=== PATIENT | male | born 1950 | race Caucasian/White ===

== ENCOUNTER 2023-03-08 12:12 | Inpatient (IN) | payer OTHER, MEDICARE, BC ==
[~2023-03-08] VITALS: Ht 170.2 cm; Wt 101.2 kg
[2023-03-08] VITALS (8 sets, daily range): BP systolic 106; BP diastolic 61; PULSE 79–91; RESP 16–30; TEMP 98; O2SAT 84–99
[2023-03-08] MEDS ORDERED: FUROSEMIDE 40 MG/4 ML VIAL IV ONE ×2 (13:15)
[2023-03-08 14:32] LABS: Alanine Aminotransferase 36 U/L (7-40); Albumin 2.5 g/dL (3.2-4.8); Alkaline Phosphatase 167 U/L (46-116); Anion Gap 7 (5-15); Aspartate Aminotransferase 100 U/L (13-40); BUN/Creatinine Ratio 25.9 (10.0-20.0); Blood Urea Nitrogen 15 mg/dL (9-23); Calcium 8.3 mg/dL (8.5-10.1); Carbon Dioxide 25 mmol/L (20-30); Chloride 108 mmol/L (98-107); Glucose 106 mg/dL (74-106); Potassium 4.1 mmol/L (3.5-5.1); Sodium 140 mmol/L (136-145)
[2023-03-08 14:33] LABS: Bilirubin, Total 2.6 mg/dL (0.2-1.0); Total Protein 5.8 g/dL (5.7-8.2)
[2023-03-08 14:59] LABS: Urine Bacteria NONE SEEN /hpf (None Seen); Urine Blood Negative /uL (Negative); Urine Clarity Clear (Clear); Urine Color Yellow (Yellow); Urine Protein, UAD Negative (Negative); Urine Specific Gravity 1.013 (1.001-1.035); Urine Urobilinogen Normal (Negative); Urine WBC 1 /hpf (0 - 3)
[2023-03-08] MEDS ORDERED: IOHEXOL 350 MG/ML 100ML IJ ONE (15:17)
[2023-03-08] MEDS ORDERED: ASPI-325 PO (15:25)
[2023-03-08] MEDS ORDERED: BENZ100C97 PO (15:25)
[2023-03-08] MEDS ORDERED: LORA-1121 PO (15:25)
[2023-03-08] MEDS ORDERED: LEVO500T91 PO (15:25)
[2023-03-08] MEDS ORDERED: CARV3.1240 PO (15:25)
[2023-03-08] MEDS ORDERED: FUR20T PO (15:25)
[2023-03-08] MEDS ORDERED: ALBU108A5 INH (15:25)
[2023-03-08] MEDS ORDERED: PANT40TA57 PO (15:25)
[2023-03-08] MEDS ORDERED: ALBUTEROL SULF 2.5 MG/0.5ML(0.5%) NEB SOLN NEB PRN (15:30)
[2023-03-08] MEDS ORDERED: AZITHROMYCIN 500MG/ 250ML 250 ML IV ONE (15:30)
[2023-03-08] MEDS ORDERED: MORPHINE SULFATE INJ 2 MG/ml SYRG IV PRN (15:30)
[2023-03-08] MEDS ORDERED: cefTRIAXone 1GM/50ML D5W 50 ML IV ONE (15:30)
[2023-03-08] MEDS ORDERED: NITROGLYCERIN 0.4 MG SL TAB SL PRN (15:30)
[2023-03-08] MEDS ORDERED: ACETAMINOPHEN 325 MG TAB PO PRN (15:30)
[2023-03-08] MEDS ORDERED: LORazepam 0.5 MG TAB PO PRN (15:30)
[2023-03-08 15:31] LABS: Basophils # (auto) 0 10 ^3/uL (0-0.2); Basophils % (auto) 0.6 % (0.0-2.0); Eosinophils # (auto) 0.3 10 ^3/uL (0-0.8); Eosinophils % (auto) 6.5 % (0.0-7.0); Hematocrit 32.7 % (41.0-53.0); Hemoglobin 10.9 g/dL (13.5-17.5); Lymphocytes # (auto) 0.4 10 ^3/uL (0.4-5.4); Lymphocytes % (auto) 9.4 % (10.0-50.0); Mean Corpuscular Hemoglobin 35.7 pg (28.0-32.0); Mean Corpuscular Hgb Conc. 33.5 g/dL (32.0-36.0); Mean Corpuscular Volume 106.7 fL (80.0-100.0); Monocytes # (auto) 0.4 10 ^3/uL (0-1.3); Neutrophils % (auto) 73.5 % (37.0-80.0); Nucleated Red Blood Cells % 0.2 %; Red Blood Cells 3.06 10^6/uL (4.5-5.90); White Blood Cell 4.1 10^3/uL (4.4-10.8)
[2023-03-08 15:51] LABS: Bilirubin, Direct 1.8 mg/dL (<0.3)
[2023-03-08] MEDS: SODIUM CHLORIDE 0.9% 1,000 ML IV SCH (15:51)
[2023-03-08 16:38] LABS: Base Excess 1.1 mmol/L (-2.0-2.0)
[2023-03-08] MEDS ORDERED: ENOXAPARIN SOD 120 MG/0.8 ML SYRINGE SC ONE (16:45)
[2023-03-08 17:27] LABS: Rapid Influenza A Negative (Negative); Rapid Influenza B Negative (Negative)
[2023-03-08 17:30] LABS: COVID19 ANTIGEN SOFIA FIA POSITIVE (NEGATIVE)
[2023-03-08 18:53] LABS: INR 1.38 (0.9-1.15); Prothrombin Time 14.2 sec (9.3-11.8)
[2023-03-08] MEDS: IPRATROPIUM BROM 0.5 MG/2.5ML INH SOL NEB SCH ×2 (19:49→22:28)
[2023-03-08] MEDS: ALBUTEROL SULF 2.5 MG/0.5ML(0.5%) NEB SOLN NEB SCH ×2 (19:49→22:28)
[2023-03-08 19:57] LABS: Magnesium 1.7 mg/dL (1.6-2.6)
[2023-03-08 20:21] LABS: CRP High Sensitivity 6.2 mg/dL (<1.0)
[2023-03-08] MEDS: CARVEDILOL 3.125 MG TAB PO SCH (22:39)
[2023-03-08] MEDS: HYDROcodone-ACET 5/325MG TAB PO PRN (22:52)
[2023-03-09] VITALS (11 sets, daily range): BP systolic 104–126; BP diastolic 48–69; PULSE 71–98; RESP 17–22; TEMP 98.3–98.8; O2SAT 93–96
[2023-03-09] MEDS ORDERED: ENOXAPARIN SOD 120 MG/0.8 ML SYRINGE SC SCH (06:00)
[2023-03-09 06:39] LABS: Alanine Aminotransferase 31 U/L (7-40); Alkaline Phosphatase 148 U/L (46-116); Anion Gap 5 (5-15); Aspartate Aminotransferase 98 U/L (13-40); BUN/Creatinine Ratio 21.1 (10.0-20.0); Blood Urea Nitrogen 12 mg/dL (9-23); Calcium 7.7 mg/dL (8.7-10.4); Carbon Dioxide 25 mmol/L (20-30); Chloride 108 mmol/L (98-107); Glucose 70 mg/dL (74-106); Potassium 3.9 mmol/L (3.5-5.1); Sodium 138 mmol/L (136-145)
[2023-03-09 06:40] LABS: Albumin 2.3 g/dL (3.2-4.8)
[2023-03-09 06:41] LABS: Bilirubin, Total 2.6 mg/dL (0.2-1.0); Total Protein 5.5 g/dL (5.7-8.2)
[2023-03-09] MEDS: HYDROcodone-ACET 5/325MG TAB PO PRN ×2 (06:55→16:16)
[2023-03-09 07:04] LABS: Basophils # (auto) 0 10 ^3/uL (0-0.2); Eosinophils # (auto) 0.3 10 ^3/uL (0-0.8); Mean Corpuscular Hgb Conc. 34.4 g/dL (32.0-36.0); White Blood Cell 4.4 10^3/uL (4.4-10.8)
[2023-03-09 07:06] LABS: Basophils % (auto) 0.6 % (0.0-2.0); Eosinophils % (auto) 7.3 % (0.0-7.0); Hematocrit 29.9 % (41.0-53.0); Hemoglobin 10.3 g/dL (13.5-17.5); Lymphocytes # (auto) 0.6 10 ^3/uL (0.4-5.4); Mean Corpuscular Hemoglobin 36.3 pg (28.0-32.0); Mean Corpuscular Volume 105.6 fL (80.0-100.0); Monocytes # (auto) 0.5 10 ^3/uL (0-1.3); Monocytes % (auto) 10.4 % (0.0-12.0); Neutrophils % (auto) 67.7 % (37.0-80.0); Nucleated Red Blood Cells % 0.3 %; Red Blood Cells 2.83 10^6/uL (4.5-5.90); Red Cell Distribution Width 15.1 % (11.8-14.3)
[2023-03-09] MEDS ORDERED: REMDESIVIR PER PHARMACY 0 ML IV SCH (08:15)
[2023-03-09] MEDS: cefTRIAXone 1GM/50ML D5W 50 ML IV SCH (09:15)
[2023-03-09] MEDS: SODIUM CHLORIDE 0.9% 1,000 ML IV SCH (09:16)
[2023-03-09] MEDS: CARVEDILOL 3.125 MG TAB PO SCH ×2 (10:00→10:07)
[2023-03-09] MEDS ORDERED: CHOLECALCIFEROL (VITD3) 2,000 UNIT CAP/TAB PO SCH (10:00)
[2023-03-09] MEDS ORDERED: ENOXAPARIN SOD 40 MG/0.4 ML SYRINGE SC SCH ×2 (10:00)
[2023-03-09] MEDS ORDERED: ASCORBIC ACID 1,000 MG TAB PO SCH (10:00)
[2023-03-09] MEDS ORDERED: AZITHROMYCIN 500MG/ 250ML 250 ML IV SCH (10:00)
[2023-03-09] MEDS: PANTOPRAZOLE 40 MG TAB PO SCH (10:05)
[2023-03-09] MEDS: ASPirin-EC 81 mg tab PO SCH (10:07)
[2023-03-09] MEDS ORDERED: DexAMETHasone SOD PHOS 10MG/1ML VIAL INJ IV ONE (10:15)
[2023-03-09] MEDS ORDERED: ZINC SULFATE 220mg CAP or TAB PO ONE (10:15)
[2023-03-09] MEDS ORDERED: DOXYCYCLINE 100MG/250ML 250 ML IV SCH (10:30)
[2023-03-09] MEDS ORDERED: SPIRONOLACTONE 25 MG TAB PO ONE (10:30)
[2023-03-09] MEDS ORDERED: FUROSEMIDE 20 MG/2 ML VIAL IV ONE (11:30)
[2023-03-09] MEDS ORDERED: ENOXAPARIN SOD 120 MG/0.8 ML SYRINGE SC ONE (11:30)
[2023-03-09] MEDS ORDERED: AZITHROMYCIN 500MG/ 250ML 250 ML IV ONE (11:30)
[2023-03-09] MEDS: ENOXAPARIN SOD 120 MG/0.8 ML SYRINGE SC SCH ×2 (12:17→21:04)
[2023-03-09] MEDS ORDERED: REMDESIVIR 200 MG in NS 210ml LOADING DOSE ADULT IV ONE (15:00)
[2023-03-09] MEDS: FUROSEMIDE 20 MG/2 ML VIAL IV SCH (17:31)
[2023-03-09 22:25] LABS: COVID19 ANTIGEN SOFIA FIA POSITIVE (NEGATIVE)
[2023-03-09] MEDS: ALBUTEROL SULF HFA 90MCG INH 200DOSE IN PRN (22:31)
[2023-03-10] VITALS (10 sets, daily range): BP systolic 98–106; BP diastolic 58–69; PULSE 64–82; RESP 16–20; TEMP 97.7–98.4; O2SAT 93–96
[2023-03-10] MEDS: FUROSEMIDE 20 MG/2 ML VIAL IV SCH ×2 (06:00→18:09)
[2023-03-10 06:19] LABS: Basophils # (auto) 0 10 ^3/uL (0-0.2); Basophils % (auto) 0.1 % (0.0-2.0); Eosinophils # (auto) 0 10 ^3/uL (0-0.8); Neutrophils % (auto) 86.8 % (37.0-80.0); Nucleated Red Blood Cells % 0.1 %
[2023-03-10 06:22] LABS: Hemoglobin 10.2 g/dL (13.5-17.5); Lymphocytes # (auto) 0.4 10 ^3/uL (0.4-5.4); Lymphocytes % (auto) 7.9 % (10.0-50.0); Mean Corpuscular Hemoglobin 37.1 pg (28.0-32.0); Mean Corpuscular Hgb Conc. 35.2 g/dL (32.0-36.0); Mean Corpuscular Volume 105.4 fL (80.0-100.0); Monocytes # (auto) 0.2 10 ^3/uL (0-1.3); Monocytes % (auto) 5.2 % (0.0-12.0); Red Blood Cells 2.75 10^6/uL (4.5-5.90); Red Cell Distribution Width 14.5 % (11.8-14.3); White Blood Cell 4.6 10^3/uL (4.4-10.8)
[2023-03-10 06:58] LABS: Alanine Aminotransferase 33 U/L (7-40); Albumin 2.4 g/dL (3.2-4.8); Alkaline Phosphatase 150 U/L (46-116); Anion Gap 5 (5-15); Aspartate Aminotransferase 98 U/L (13-40); Blood Urea Nitrogen 13 mg/dL (9-23); Calcium 7.9 mg/dL (8.7-10.4); Carbon Dioxide 26 mmol/L (20-30); Chloride 106 mmol/L (98-107); Glucose 128 mg/dL (74-106); Magnesium 1.7 mg/dL (1.6-2.6); Potassium 4.3 mmol/L (3.5-5.1); Sodium 137 mmol/L (136-145)
[2023-03-10 06:59] LABS: Total Protein 5.8 g/dL (5.7-8.2)
[2023-03-10] MEDS: cefTRIAXone 1GM/50ML D5W 50 ML IV SCH (08:47)
[2023-03-10] MEDS ORDERED: IOHEXOL 350 MG/ML 100ML IJ ONE (09:12)
[2023-03-10] MEDS: DexAMETHasone SOD PHOS 10MG/1ML VIAL INJ IV SCH (09:57)
[2023-03-10] MEDS: SPIRONOLACTONE 25 MG TAB PO SCH (09:57)
[2023-03-10] MEDS: ZINC SULFATE 220mg CAP or TAB PO SCH (09:57)
[2023-03-10] MEDS: ASPirin-EC 81 mg tab PO SCH (09:58)
[2023-03-10] MEDS: AZITHROMYCIN 500MG/ 250ML 250 ML IV SCH (09:58)
[2023-03-10] MEDS: PANTOPRAZOLE 40 MG TAB PO SCH (09:58)
[2023-03-10] MEDS: ASCORBIC ACID 500 MG TAB PO SCH (09:58)
[2023-03-10] MEDS: CHOLECALCIFEROL (VITD3) 1,000UNIT=25mCg TAB PO SCH (10:18)
[2023-03-10] MEDS: ENOXAPARIN SOD 120 MG/0.8 ML SYRINGE SC SCH ×2 (10:34→22:18)
[2023-03-10] MEDS: REMDESIVIR 100mg 100 MG in SODIUM CHL 0.9% 230 ML IV SCH (16:09)
[2023-03-11] VITALS (9 sets, daily range): BP systolic 100–142; BP diastolic 50–119; PULSE 62–77; RESP 18–24; TEMP 97.8–98.8; O2SAT 91–95
[2023-03-11 05:20] LABS: Basophils # (auto) 0 10 ^3/uL (0-0.2); Eosinophils # (auto) 0 10 ^3/uL (0-0.8); Monocytes # (auto) 0.4 10 ^3/uL (0-1.3); Neutrophils # (auto) 7.4 10 ^3/uL (1.6-8.6)
[2023-03-11 05:23] LABS: Basophils % (auto) 0.1 % (0.0-2.0); Hematocrit 31.6 % (41.0-53.0); Lymphocytes # (auto) 0.4 10 ^3/uL (0.4-5.4); Lymphocytes % (auto) 5.4 % (10.0-50.0); Mean Corpuscular Hemoglobin 36.5 pg (28.0-32.0); Mean Corpuscular Hgb Conc. 34.8 g/dL (32.0-36.0); Mean Corpuscular Volume 104.8 fL (80.0-100.0); Monocytes % (auto) 4.6 % (0.0-12.0); Neutrophils % (auto) 89.9 % (37.0-80.0); Nucleated Red Blood Cells % 0.3 %; Red Blood Cells 3.02 10^6/uL (4.5-5.90); Red Cell Distribution Width 14.5 % (11.8-14.3); White Blood Cell 8.2 10^3/uL (4.4-10.8)
[2023-03-11 05:34] LABS: Alanine Aminotransferase 42 U/L (7-40); Albumin 2.4 g/dL (3.2-4.8); Alkaline Phosphatase 168 U/L (46-116); Anion Gap 8 (5-15); Aspartate Aminotransferase 120 U/L (13-40); Blood Urea Nitrogen 18 mg/dL (9-23); Calcium 7.9 mg/dL (8.7-10.4); Carbon Dioxide 25 mmol/L (20-30); Chloride 107 mmol/L (98-107); Glucose 128 mg/dL (74-106); Magnesium 1.8 mg/dL (1.6-2.6); Sodium 140 mmol/L (136-145)
[2023-03-11 05:35] LABS: Bilirubin, Total 1.8 mg/dL (0.2-1.0); Total Protein 5.8 g/dL (5.7-8.2)
[2023-03-11] MEDS: FUROSEMIDE 20 MG/2 ML VIAL IV SCH ×2 (06:05→18:38)
[2023-03-11] MEDS: cefTRIAXone 1GM/50ML D5W 50 ML IV SCH (08:32)
[2023-03-11] MEDS: DexAMETHasone SOD PHOS 10MG/1ML VIAL INJ IV SCH (10:37)
[2023-03-11] MEDS: ASCORBIC ACID 500 MG TAB PO SCH (10:37)
[2023-03-11] MEDS: ASPirin-EC 81 mg tab PO SCH (10:37)
[2023-03-11] MEDS: PANTOPRAZOLE 40 MG TAB PO SCH (10:37)
[2023-03-11] MEDS: ENOXAPARIN SOD 120 MG/0.8 ML SYRINGE SC SCH ×2 (10:38→21:16)
[2023-03-11] MEDS: ZINC SULFATE 220mg CAP or TAB PO SCH (10:38)
[2023-03-11] MEDS: AZITHROMYCIN 500MG/ 250ML 250 ML IV SCH (10:38)
[2023-03-11] MEDS: SPIRONOLACTONE 25 MG TAB PO SCH (10:38)
[2023-03-11] MEDS: CHOLECALCIFEROL (VITD3) 1,000UNIT=25mCg TAB PO SCH (10:38)
[2023-03-11 10:43] LABS: Hepatitis B Surface Antigen Negative (Negative)
[2023-03-11 11:01] LABS: Hepatitis A Ab IgM Negative
[2023-03-11 11:03] LABS: Hepatitis B Core IgM Negative
[2023-03-11 11:04] LABS: Hepatitis C Antibody Negative (Negative)
[2023-03-11] MEDS: REMDESIVIR 100mg 100 MG in SODIUM CHL 0.9% 230 ML IV SCH (16:09)
[2023-03-11] MEDS: HYDROcodone-ACET 5/325MG TAB PO PRN (18:54)
[2023-03-12] VITALS (9 sets, daily range): BP systolic 108–132; BP diastolic 63–75; PULSE 59–85; RESP 15–19; TEMP 97.5–98.2; O2SAT 92–98
[2023-03-12 05:49] LABS: Basophils # (auto) 0 10 ^3/uL (0-0.2); Eosinophils # (auto) 0 10 ^3/uL (0-0.8); Lymphocytes # (auto) 0.4 10 ^3/uL (0.4-5.4); Lymphocytes % (auto) 5.8 % (10.0-50.0); Monocytes # (auto) 0.5 10 ^3/uL (0-1.3); Nucleated Red Blood Cells % 0.1 %; Red Blood Cells 2.97 10^6/uL (4.5-5.90); White Blood Cell 7.6 10^3/uL (4.4-10.8)
[2023-03-12 05:53] LABS: Basophils % (auto) 0.1 % (0.0-2.0); Hematocrit 31.7 % (41.0-53.0); Hemoglobin 10.7 g/dL (13.5-17.5); Mean Corpuscular Hemoglobin 36.1 pg (28.0-32.0); Mean Corpuscular Hgb Conc. 33.8 g/dL (32.0-36.0); Mean Corpuscular Volume 106.8 fL (80.0-100.0); Monocytes % (auto) 6.8 % (0.0-12.0); Neutrophils # (auto) 6.6 10 ^3/uL (1.6-8.6); Neutrophils % (auto) 87.3 % (37.0-80.0); Red Cell Distribution Width 14.8 % (11.8-14.3)
[2023-03-12 06:07] LABS: Alanine Aminotransferase 47 U/L (7-40); Albumin 2.4 g/dL (3.2-4.8); Alkaline Phosphatase 168 U/L (46-116); Anion Gap 6 (5-15); Aspartate Aminotransferase 136 U/L (13-40); BUN/Creatinine Ratio 24.2 (10.0-20.0); Blood Urea Nitrogen 15 mg/dL (9-23); Calcium 7.9 mg/dL (8.7-10.4); Carbon Dioxide 25 mmol/L (20-30); Chloride 108 mmol/L (98-107); Glucose 97 mg/dL (74-106); Potassium 4.3 mmol/L (3.5-5.1); Sodium 139 mmol/L (136-145)
[2023-03-12 06:08] LABS: Bilirubin, Total 1.7 mg/dL (0.2-1.0); Total Protein 5.8 g/dL (5.7-8.2)
[2023-03-12] MEDS ORDERED: IOHEXOL 350 MG/ML 100ML IJ ONE (06:18)
[2023-03-12] MEDS: FUROSEMIDE 20 MG/2 ML VIAL IV SCH ×2 (06:28→18:03)
[2023-03-12] MEDS ORDERED: SODIUM CHLORIDE 0.9% 500 ML IV ONE (07:00)
[2023-03-12] MEDS: cefTRIAXone 1GM/50ML D5W 50 ML IV SCH (09:37)
[2023-03-12] MEDS: DexAMETHasone SOD PHOS 10MG/1ML VIAL INJ IV SCH (09:37)
[2023-03-12] MEDS: PANTOPRAZOLE 40 MG TAB PO SCH (09:38)
[2023-03-12] MEDS: ZINC SULFATE 220mg CAP or TAB PO SCH (09:38)
[2023-03-12] MEDS: CHOLECALCIFEROL (VITD3) 1,000UNIT=25mCg TAB PO SCH (09:38)
[2023-03-12] MEDS: ASCORBIC ACID 500 MG TAB PO SCH (09:38)
[2023-03-12] MEDS: ASPirin-EC 81 mg tab PO SCH (09:38)
[2023-03-12] MEDS: SPIRONOLACTONE 25 MG TAB PO SCH (09:38)
[2023-03-12] MEDS: AZITHROMYCIN 500MG/ 250ML 250 ML IV SCH (11:22)
[2023-03-12] MEDS: ENOXAPARIN SOD 120 MG/0.8 ML SYRINGE SC SCH (11:26)
[2023-03-12] MEDS: REMDESIVIR 100mg 100 MG in SODIUM CHL 0.9% 230 ML IV SCH (17:05)
[2023-03-12] MEDS: HYDROcodone-ACET 5/325MG TAB PO PRN (17:05)
[2023-03-13] VITALS (10 sets, daily range): BP systolic 98–126; BP diastolic 55–64; PULSE 53–83; RESP 15–22; TEMP 97.3–97.8; O2SAT 91–95
[2023-03-13] MEDS: FUROSEMIDE 20 MG/2 ML VIAL IV SCH ×2 (05:42→18:00)
[2023-03-13 06:18] LABS: Basophils # (auto) 0 10 ^3/uL (0-0.2); Eosinophils # (auto) 0 10 ^3/uL (0-0.8); Nucleated Red Blood Cells % 0.1 %
[2023-03-13 06:20] LABS: Basophils % (auto) 0.1 % (0.0-2.0); Hematocrit 36.1 % (41.0-53.0); Lymphocytes # (auto) 0.5 10 ^3/uL (0.4-5.4); Lymphocytes % (auto) 5.9 % (10.0-50.0); Mean Corpuscular Hemoglobin 36.6 pg (28.0-32.0); Mean Corpuscular Hgb Conc. 33.2 g/dL (32.0-36.0); Mean Corpuscular Volume 110.2 fL (80.0-100.0); Monocytes # (auto) 0.5 10 ^3/uL (0-1.3); Monocytes % (auto) 5.9 % (0.0-12.0); Neutrophils # (auto) 7.2 10 ^3/uL (1.6-8.6); Neutrophils % (auto) 88.1 % (37.0-80.0); Red Blood Cells 3.27 10^6/uL (4.5-5.90); Red Cell Distribution Width 15.6 % (11.8-14.3); White Blood Cell 8.1 10^3/uL (4.4-10.8)
[2023-03-13 06:27] LABS: Alanine Aminotransferase 71 U/L (7-40); Albumin 2.5 g/dL (3.2-4.8); Alkaline Phosphatase 197 U/L (46-116); Anion Gap 5 (5-15); Aspartate Aminotransferase 188 U/L (13-40); BUN/Creatinine Ratio 21.2 (10.0-20.0); Blood Urea Nitrogen 14 mg/dL (9-23); Calcium 8.1 mg/dL (8.7-10.4); Carbon Dioxide 25 mmol/L (20-30); Chloride 109 mmol/L (98-107); Glucose 101 mg/dL (74-106); Magnesium 2.2 mg/dL (1.6-2.6); Potassium 4.3 mmol/L (3.5-5.1); Sodium 139 mmol/L (136-145)
[2023-03-13 06:28] LABS: Bilirubin, Total 1.8 mg/dL (0.2-1.0); Total Protein 6.3 g/dL (5.7-8.2)
[2023-03-13] MEDS: HYDROcodone-ACET 5/325MG TAB PO PRN (08:46)
[2023-03-13] MEDS: cefTRIAXone 1GM/50ML D5W 50 ML IV SCH (08:48)
[2023-03-13] MEDS: ASCORBIC ACID 500 MG TAB PO SCH (10:00)
[2023-03-13] MEDS: ENOXAPARIN SOD 40 MG/0.4 ML SYRINGE SC SCH (10:00)
[2023-03-13] MEDS: SPIRONOLACTONE 25 MG TAB PO SCH (10:00)
[2023-03-13] MEDS: CHOLECALCIFEROL (VITD3) 1,000UNIT=25mCg TAB PO SCH (10:00)
[2023-03-13] MEDS: PANTOPRAZOLE 40 MG TAB PO SCH (10:00)
[2023-03-13] MEDS: ASPirin-EC 81 mg tab PO SCH (10:00)
[2023-03-13] MEDS: ZINC SULFATE 220mg CAP or TAB PO SCH (10:00)
[2023-03-13] MEDS: AZITHROMYCIN 500MG/ 250ML 250 ML IV SCH (11:08)
[2023-03-13] MEDS: DexAMETHasone SOD PHOS 10MG/1ML VIAL INJ IV SCH (11:08)
[2023-03-13 16:16] LABS: COVID19 ANTIGEN SOFIA FIA NEGATIVE (NEGATIVE)
[2023-03-13] MEDS: REMDESIVIR 100mg 100 MG in SODIUM CHL 0.9% 230 ML IV SCH (17:07)
[2023-03-14] VITALS (16 sets, daily range): BP systolic 99–138; BP diastolic 55–74; PULSE 52–70; RESP 14–20; TEMP 97.7–98.3; O2SAT 93–98
[2023-03-14] MEDS: FUROSEMIDE 20 MG/2 ML VIAL IV SCH ×2 (05:35→18:00)
[2023-03-14 05:48] LABS: Basophils # (auto) 0 10 ^3/uL (0-0.2); Eosinophils # (auto) 0 10 ^3/uL (0-0.8); Hemoglobin 11.6 g/dL (13.5-17.5); Lymphocytes # (auto) 0.3 10 ^3/uL (0.4-5.4); Monocytes # (auto) 0.5 10 ^3/uL (0-1.3); White Blood Cell 7.8 10^3/uL (4.4-10.8)
[2023-03-14 05:52] LABS: Lymphocytes % (auto) 4.3 % (10.0-50.0); Monocytes % (auto) 6.4 % (0.0-12.0); Neutrophils % (auto) 89.3 % (37.0-80.0); Nucleated Red Blood Cells % 0.1 %
[2023-03-14 05:53] LABS: Hematocrit 33.9 % (41.0-53.0); Mean Corpuscular Hemoglobin 36.6 pg (28.0-32.0); Mean Corpuscular Hgb Conc. 34.1 g/dL (32.0-36.0); Mean Corpuscular Volume 107.3 fL (80.0-100.0); Neutrophils # (auto) 6.9 10 ^3/uL (1.6-8.6); Red Blood Cells 3.16 10^6/uL (4.5-5.90); Red Cell Distribution Width 15.2 % (11.8-14.3)
[2023-03-14 06:07] LABS: Alanine Aminotransferase 74 U/L (7-40); Albumin 2.4 g/dL (3.2-4.8); Alkaline Phosphatase 199 U/L (46-116); Anion Gap 6 (5-15); Aspartate Aminotransferase 171 U/L (13-40); BUN/Creatinine Ratio 29.2 (10.0-20.0); Blood Urea Nitrogen 19 mg/dL (9-23); Carbon Dioxide 23 mmol/L (20-30); Chloride 111 mmol/L (98-107); Glucose 99 mg/dL (74-106); Magnesium 2.2 mg/dL (1.6-2.6); Potassium 4.5 mmol/L (3.5-5.1); Sodium 140 mmol/L (136-145); Total Protein 5.9 g/dL (5.7-8.2)
[2023-03-14] MEDS: cefTRIAXone 1GM/50ML D5W 50 ML IV SCH (08:57)
[2023-03-14] MEDS: ZINC SULFATE 220mg CAP or TAB PO SCH (10:00)
[2023-03-14] MEDS: ASPirin-EC 81 mg tab PO SCH (10:00)
[2023-03-14] MEDS: ENOXAPARIN SOD 40 MG/0.4 ML SYRINGE SC SCH ×2 (10:00→10:01)
[2023-03-14] MEDS: PANTOPRAZOLE 40 MG TAB PO SCH (10:00)
[2023-03-14] MEDS: SPIRONOLACTONE 25 MG TAB PO SCH (10:01)
[2023-03-14] MEDS: AZITHROMYCIN 500MG/ 250ML 250 ML IV SCH (10:01)
[2023-03-14] MEDS: DexAMETHasone SOD PHOS 10MG/1ML VIAL INJ IV SCH (10:03)
[2023-03-14] MEDS: CHOLECALCIFEROL (VITD3) 1,000UNIT=25mCg TAB PO SCH (10:25)
[2023-03-14] MEDS ORDERED: LIDOCAINE 2%HCL (LOCAL ANESTH.) INJ 20ML MDV ONE (16:57)
[2023-03-14] MEDS ORDERED: fentaNYL CITRATE 100 MCG/2 ML VL ONE (17:14)
[2023-03-14] MEDS ORDERED: MIDAZOLAM HCL 2MG/2ML 2ml VIAL (1mg/ml) ONE (17:15)
[2023-03-14] MEDS: HYDROcodone-ACET 5/325MG TAB PO PRN (23:18)
[2023-03-15] VITALS (12 sets, daily range): BP systolic 121–129; BP diastolic 66–71; PULSE 63–73; RESP 18–22; TEMP 97.7–98.2; O2SAT 90–99
[2023-03-15 05:28] LABS: Basophils # (auto) 0 10 ^3/uL (0-0.2); Eosinophils # (auto) 0 10 ^3/uL (0-0.8); Lymphocytes # (auto) 0.3 10 ^3/uL (0.4-5.4); Monocytes # (auto) 0.8 10 ^3/uL (0-1.3)
[2023-03-15 05:31] LABS: Basophils % (auto) 0.1 % (0.0-2.0); Hematocrit 38.1 % (41.0-53.0); Hemoglobin 13.1 g/dL (13.5-17.5); Mean Corpuscular Hemoglobin 36.6 pg (28.0-32.0); Mean Corpuscular Hgb Conc. 34.4 g/dL (32.0-36.0); Mean Corpuscular Volume 106.4 fL (80.0-100.0); Monocytes % (auto) 7.4 % (0.0-12.0); Neutrophils # (auto) 9.9 10 ^3/uL (1.6-8.6); Neutrophils % (auto) 89.5 % (37.0-80.0); Red Blood Cells 3.58 10^6/uL (4.5-5.90); Red Cell Distribution Width 15.3 % (11.8-14.3)
[2023-03-15] MEDS: FUROSEMIDE 20 MG/2 ML VIAL IV SCH (05:56)
[2023-03-15 05:58] LABS: Alanine Aminotransferase 91 U/L (7-40); Albumin 2.7 g/dL (3.2-4.8); Alkaline Phosphatase 227 U/L (46-116); Anion Gap 5 (5-15); Aspartate Aminotransferase 179 U/L (13-40); BUN/Creatinine Ratio 28.6 (10.0-20.0); Blood Urea Nitrogen 22 mg/dL (9-23); Calcium 8.5 mg/dL (8.5-10.1); Carbon Dioxide 24 mmol/L (20-30); Chloride 108 mmol/L (98-107); Glucose 155 mg/dL (74-106); Potassium 4.7 mmol/L (3.5-5.1); Sodium 137 mmol/L (136-145)
[2023-03-15 05:59] LABS: Bilirubin, Total 2.5 mg/dL (0.2-1.0); Total Protein 6.6 g/dL (5.7-8.2)
[2023-03-15 06:20] LABS: Magnesium 2.2 mg/dL (1.6-2.6)
[2023-03-15] MEDS: ALBUTEROL SULF HFA 90MCG INH 200DOSE IN PRN (07:42)
[2023-03-15 08:39] LABS: Base Excess -0.5 mmol/L (-2.0-2.0)
[2023-03-15] MEDS ORDERED: LACTULOSE 20Gm/30ML SOLN PO ONE (09:15)
[2023-03-15] MEDS: SPIRONOLACTONE 25 MG TAB PO SCH (09:44)
[2023-03-15] MEDS: PANTOPRAZOLE 40 MG TAB PO SCH (09:44)
[2023-03-15] MEDS: ENOXAPARIN SOD 40 MG/0.4 ML SYRINGE SC SCH (09:44)
[2023-03-15] MEDS: ZINC SULFATE 220mg CAP or TAB PO SCH (09:44)
[2023-03-15] MEDS: ASPirin-EC 81 mg tab PO SCH (09:44)
[2023-03-15] MEDS: cefTRIAXone 1GM/50ML D5W 50 ML IV SCH (09:45)
[2023-03-15] MEDS: DexAMETHasone SOD PHOS 10MG/1ML VIAL INJ IV SCH (09:45)
[2023-03-15] MEDS: CHOLECALCIFEROL (VITD3) 1,000UNIT=25mCg TAB PO SCH (09:51)
[2023-03-15] MEDS: HYDROcodone-ACET 5/325MG TAB PO PRN (09:52)
[2023-03-15] MEDS: AZITHROMYCIN 500MG/ 250ML 250 ML IV SCH (10:37)
[2023-03-15 12:11] LABS: INR 1.6 (0.9-1.15); Partial Thromboplastin Time 31.7 SEC (24.5-34.5); Prothrombin Time 16.3 sec (9.3-11.8)
[2023-03-15 15:21] LABS: INR 1.62 (0.9-1.15); Prothrombin Time 16.5 sec (9.3-11.8)
[2023-03-15] MEDS ORDERED: ALBUTEROL SULF 2.5 MG/0.5ML(0.5%) NEB SOLN NEB PRN (17:45)
[2023-03-15] MEDS ORDERED: LACTULOSE 20Gm/30ML SOLN PO SCH (22:00)
[2023-03-16] VITALS (11 sets, daily range): BP systolic 116–138; BP diastolic 59–79; PULSE 57–71; RESP 16–20; TEMP 97.5–98.6; O2SAT 92–98
[2023-03-16] MEDS: HYDROcodone-ACET 5/325MG TAB PO PRN (00:18)
[2023-03-16 05:26] LABS: Basophils # (auto) 0 10 ^3/uL (0-0.2); Eosinophils # (auto) 0 10 ^3/uL (0-0.8); Lymphocytes # (auto) 0.3 10 ^3/uL (0.4-5.4); Nucleated Red Blood Cells % 0.1 %; White Blood Cell 8.7 10^3/uL (4.4-10.8)
[2023-03-16 05:30] LABS: Basophils % (auto) 0.2 % (0.0-2.0); Hemoglobin 12.2 g/dL (13.5-17.5); Lymphocytes % (auto) 3.5 % (10.0-50.0); Mean Corpuscular Volume 105.8 fL (80.0-100.0); Monocytes # (auto) 0.6 10 ^3/uL (0-1.3); Monocytes % (auto) 6.6 % (0.0-12.0); Neutrophils # (auto) 7.8 10 ^3/uL (1.6-8.6); Neutrophils % (auto) 89.7 % (37.0-80.0)
[2023-03-16 05:44] LABS: INR 1.62 (0.9-1.15); Partial Thromboplastin Time 32.5 SEC (24.5-34.5); Prothrombin Time 16.5 sec (9.3-11.8)
[2023-03-16 05:53] LABS: Alanine Aminotransferase 91 U/L (7-40); Albumin 2.5 g/dL (3.2-4.8); Alkaline Phosphatase 202 U/L (46-116); Anion Gap 5 (5-15); Aspartate Aminotransferase 163 U/L (13-40); BUN/Creatinine Ratio 34.4 (10.0-20.0); Blood Urea Nitrogen 22 mg/dL (9-23); Calcium 8.1 mg/dL (8.7-10.4); Carbon Dioxide 26 mmol/L (20-30); Chloride 106 mmol/L (98-107); Glucose 101 mg/dL (74-106); Magnesium 2.2 mg/dL (1.6-2.6); Potassium 4.8 mmol/L (3.5-5.1); Sodium 137 mmol/L (136-145)
[2023-03-16 05:54] LABS: Bilirubin, Total 2.9 mg/dL (0.2-1.0); Total Protein 6.2 g/dL (5.7-8.2)
[2023-03-16] MEDS ORDERED: LACTULOSE 20Gm/30ML SOLN PO PRN (08:00)
[2023-03-16] MEDS ORDERED: LACTULOSE 20Gm/30ML SOLN PO STA (10:36)
[2023-03-16] MEDS: cefTRIAXone 1GM/50ML D5W 50 ML IV SCH (11:31)
[2023-03-16] MEDS: PANTOPRAZOLE 40 MG TAB PO SCH (11:31)
[2023-03-16] MEDS: ENOXAPARIN SOD 40 MG/0.4 ML SYRINGE SC SCH (11:40)
[2023-03-16] MEDS ORDERED: LACTULOSE 20Gm/30ML SOLN PO SCH (12:00)
[2023-03-16 12:11] LABS: Protein, Body Fluid 2.7 g/dL (.)
[2023-03-16] MEDS ORDERED: LACTULOSE 20Gm/30ML SOLN PO ONE (13:45)
[2023-03-16] MEDS ORDERED: LACTULOSE 10g/15ml SOLN 473ML PR ONE (13:45)
[2023-03-16] MEDS: AZITHROMYCIN 500MG/ 250ML 250 ML IV SCH (14:34)
[2023-03-16] MEDS: LACTULOSE 20Gm/30ML SOLN PO SCH (17:39)
[2023-03-16] MEDS: IBUPROFEN 400 MG TAB PO PRN (17:39)
[2023-03-16] MEDS ORDERED: SPIRONOLACTONE 25 MG TAB PO ONE (18:00)
[2023-03-16] MEDS: ENSURE CLEAR Mixed Berry 8oz Carton PO SCH (18:27)
[2023-03-16] MEDS: FUROSEMIDE 20 MG/2 ML VIAL IV SCH (18:29)
[2023-03-16] MEDS ORDERED: TAMSULOSIN HYDROCHLORIDE 0.4 MG CAP PO ONE (21:15)
[2023-03-16 22:12] LABS: Urine Bacteria NONE SEEN /hpf (None Seen); Urine Blood Negative /uL (Negative); Urine Clarity Clear (Clear); Urine Color Yellow (Yellow); Urine Hyaline Cast FEW /lpf (0 - 2); Urine Mucus FEW (None Seen); Urine Protein, UAD Negative (Negative); Urine Specific Gravity 1.012 (1.001-1.035); Urine Urobilinogen Normal (Negative); Urine WBC 2 /hpf (0 - 3)
[2023-03-17] VITALS (12 sets, daily range): BP systolic 99–134; BP diastolic 63–80; PULSE 61–100; RESP 18–20; TEMP 97.8–98.7; O2SAT 94–98
[2023-03-17] MEDS: LACTULOSE 20Gm/30ML SOLN PO SCH ×5 (00:07→23:30)
[2023-03-17] MEDS: IBUPROFEN 400 MG TAB PO PRN (03:57)
[2023-03-17 04:58] LABS: Basophils # (auto) 0 10 ^3/uL (0-0.2); Eosinophils # (auto) 0 10 ^3/uL (0-0.8); Hemoglobin 12.7 g/dL (13.5-17.5); Lymphocytes # (auto) 0.4 10 ^3/uL (0.4-5.4); Monocytes # (auto) 1.2 10 ^3/uL (0-1.3)
[2023-03-17 05:00] LABS: Hematocrit 37.3 % (41.0-53.0); Lymphocytes % (auto) 3.8 % (10.0-50.0); Mean Corpuscular Hemoglobin 35.7 pg (28.0-32.0); Mean Corpuscular Volume 105.2 fL (80.0-100.0); Monocytes % (auto) 10.9 % (0.0-12.0); Neutrophils % (auto) 85.3 % (37.0-80.0); Red Blood Cells 3.55 10^6/uL (4.5-5.90); White Blood Cell 10.6 10^3/uL (4.4-10.8)
[2023-03-17 05:22] LABS: Alanine Aminotransferase 125 U/L (7-40); Albumin 2.5 g/dL (3.2-4.8); Alkaline Phosphatase 230 U/L (46-116); Anion Gap 6 (5-15); Aspartate Aminotransferase 222 U/L (13-40); BUN/Creatinine Ratio 35.1 (10.0-20.0); Bilirubin, Total 3.2 mg/dL (0.2-1.0); Blood Urea Nitrogen 26 mg/dL (9-23); Calcium 8.4 mg/dL (8.7-10.4); Carbon Dioxide 23 mmol/L (20-30); Chloride 109 mmol/L (98-107); Glucose 84 mg/dL (74-106); Potassium 4.3 mmol/L (3.5-5.1); Sodium 138 mmol/L (136-145); Total Protein 6.3 g/dL (5.7-8.2)
[2023-03-17] MEDS: FUROSEMIDE 20 MG/2 ML VIAL IV SCH ×2 (06:00→18:02)
[2023-03-17 06:09] LABS: INR 1.54 (0.9-1.15); Partial Thromboplastin Time 28.9 SEC (24.5-34.5); Prothrombin Time 15.7 sec (9.3-11.8)
[2023-03-17 07:22] LABS: Magnesium 2.1 mg/dL (1.6-2.6)
[2023-03-17] MEDS: ENSURE CLEAR Mixed Berry 8oz Carton PO SCH (08:00)
[2023-03-17] MEDS ORDERED: FAMOTIDINE 20 MG TAB PO SCH (10:00)
[2023-03-17] MEDS: SPIRONOLACTONE 25 MG TAB PO SCH (10:49)
[2023-03-17] MEDS: ENOXAPARIN SOD 40 MG/0.4 ML SYRINGE SC SCH (10:50)
[2023-03-17] MEDS: cefTRIAXone 1GM/50ML D5W 50 ML IV SCH (10:50)
[2023-03-17] MEDS: PANTOPRAZOLE 40 MG TAB PO SCH (10:50)
[2023-03-17] MEDS: AZITHROMYCIN 500MG/ 250ML 250 ML IV SCH (12:35)
[2023-03-17] MEDS ORDERED: TAMSULOSIN HYDROCHLORIDE 0.4 MG CAP PO SCH (18:00)
[2023-03-18] VITALS (7 sets, daily range): BP systolic 105–110; BP diastolic 57–62; PULSE 77–92; RESP 18–19; TEMP 37.2; O2SAT 91–98
[2023-03-18] MEDS ORDERED: IBUPROFEN 400 MG TAB PO PRN (05:15)
[2023-03-18] MEDS: FUROSEMIDE 20 MG/2 ML VIAL IV SCH (05:18)
[2023-03-18] MEDS: LACTULOSE 20Gm/30ML SOLN PO SCH ×2 (05:18→12:19)
[2023-03-18 06:25] LABS: Basophils # (auto) 0 10 ^3/uL (0-0.2); Eosinophils # (auto) 0 10 ^3/uL (0-0.8); Eosinophils % (auto) 0.2 % (0.0-7.0); Hemoglobin 13.2 g/dL (13.5-17.5); Lymphocytes # (auto) 0.6 10 ^3/uL (0.4-5.4); Monocytes # (auto) 1.3 10 ^3/uL (0-1.3); Red Cell Distribution Width 15.7 % (11.8-14.3)
[2023-03-18 06:27] LABS: Basophils % (auto) 0.2 % (0.0-2.0); Hematocrit 39.3 % (41.0-53.0); Lymphocytes % (auto) 6.1 % (10.0-50.0); Mean Corpuscular Hemoglobin 36.2 pg (28.0-32.0); Mean Corpuscular Hgb Conc. 33.7 g/dL (32.0-36.0); Mean Corpuscular Volume 107.6 fL (80.0-100.0); Monocytes % (auto) 12.8 % (0.0-12.0); Neutrophils % (auto) 80.7 % (37.0-80.0); Red Blood Cells 3.65 10^6/uL (4.5-5.90); White Blood Cell 9.9 10^3/uL (4.4-10.8)
[2023-03-18 06:32] LABS: Alanine Aminotransferase 153 U/L (7-40); Albumin 2.4 g/dL (3.2-4.8); Alkaline Phosphatase 247 U/L (46-116); Anion Gap 7 (5-15); Aspartate Aminotransferase 250 U/L (13-40); BUN/Creatinine Ratio 29.3 (10.0-20.0); Bilirubin, Total 4.1 mg/dL (0.2-1.0); Blood Urea Nitrogen 22 mg/dL (9-23); Calcium 8.1 mg/dL (8.7-10.4); Carbon Dioxide 23 mmol/L (20-30); Chloride 105 mmol/L (98-107); Glucose 95 mg/dL (74-106); Magnesium 1.9 mg/dL (1.6-2.6); Potassium 4.2 mmol/L (3.5-5.1); Sodium 135 mmol/L (136-145); Total Protein 6.4 g/dL (5.7-8.2)
[2023-03-18] MEDS: PANTOPRAZOLE 40 MG TAB PO SCH (09:22)
[2023-03-18] MEDS: SPIRONOLACTONE 25 MG TAB PO SCH (09:23)
[2023-03-18] MEDS: AZITHROMYCIN 500MG/ 250ML 250 ML IV SCH (12:19)
[2023-03-18] MEDS: cefTRIAXone 1GM/50ML D5W 50 ML IV SCH (12:19)
== END 2023-03-18 15:05 | disposition home health service (06) | DRG 432 ==
LOC: ER 12:12 → EDBD 12:12 → TELE 15:24 → TELE-CENTR 23:46
PROVIDERS: ADMIT Internal Medicine; ATTEND Internal Medicine
PROC: XW033E5 Introduction of Remdesivir Anti-infective into Peripheral Vein, Percutaneous Approach, New Technology Group 5 (ICD-10-PCS; principal; 2023-03-09)
PROC: 0W9B3ZZ Drainage of Left Pleural Cavity, Percutaneous Approach (ICD-10-PCS; 2023-03-14)
DX: K74.60 Unspecified cirrhosis of liver (principal); J12.82 Pneumonia due to coronavirus disease 2019; J12.9 Viral pneumonia, unspecified; J15.69 Pneumonia due to other Gram-negative bacteria; J96.01 Acute respiratory failure with hypoxia; U07.1 COVID-19; K72.00 Acute and subacute hepatic failure without coma; J15.9 Unspecified bacterial pneumonia; C34.90 Malignant neoplasm of unspecified part of unspecified bronchus or lung; J98.11 Atelectasis; R18.8 Other ascites; Z68.41 Body mass index [BMI] 40.0-44.9, adult; E44.0 Moderate protein-calorie malnutrition; J90 Pleural effusion, not elsewhere classified; K76.82 Hepatic encephalopathy; E66.01 Morbid (severe) obesity due to excess calories; I50.9 Heart failure, unspecified; I71.40 Abdominal aortic aneurysm, without rupture, unspecified; R41.0 Disorientation, unspecified; R32 Unspecified urinary incontinence; Z83.3 Family history of diabetes mellitus; Z85.05 Personal history of malignant neoplasm of liver; Z85.118 Personal history of other malignant neoplasm of bronchus and lung; Z87.891 Personal history of nicotine dependence; Z88.8 Allergy status to other drugs, medicaments and biological substances
CPT/HCPCS: 32557; 36415; 36600; 70450; 71045; 71260; 71275; 74177; 76000; 76700; 76705; 76942; 80053; 80061; 80074; 81001; 82140; 82248; 82306; 82728; 82805; 82962; 83605; 83615; 83735; 83880; 84443; 84484; 85025; 85379; 85610; 85730; 86141; 86850; 86900; 86901; 87040; 87081; 87205; 87426; 87804; 93005; 93306; 93970; 94640; 97110; 97163; 97530; 99152; 99291; A4300; G0378; J1100; J2250; J3490